=== PATIENT | female | born 1990 | race Two or more races ===

== ENCOUNTER 2025-01-26 01:18 | Emergency (ER) | payer SELFPAY ==
[2025-01-26 01:25] VITALS: BP 111/65; PULSE 82; RESP 18; TEMP 97.9; BMI 31.3
[2025-01-26] MEDS ORDERED: ACETAMINOPHEN INJECTION 100 ML ONE (02:05)
[2025-01-26] MEDS ORDERED: FAMOTIDINE 20 MG/50 ML IVPB 20 MG/50 ML MG IVPB ONE (02:05)
[2025-01-26] MEDS: ACETAMINOPHEN 1000 MG/100 ML BAG IVPB ONE (02:33)
[2025-01-26] MEDS: FAMOTIDINE 20 MG/50 ML IVPB 20 MG/50 ML MG IVPB ONE (02:33)
[2025-01-26 03:00] LABS: ABSOLUTE IMMATURE GRANULOCYTES 0.02 x10^3/uL (0.0-0.031); BASOPHILS # 0.02 x10^3/uL (0.01-0.08); EOSINOPHIL % 1.1 % (0.7-5.8); EOSINOPHILS # 0.09 x10^3/uL (0.04-0.36); MCHC 31.5 g/dl (32.2-35.5); MEAN CELL VOLUME 88.0 fl (79.4-94.8); MEAN PLT VOLUME 10.5 fl (9.4-12.3); MONOCYTE # 0.59 x10^3/uL (0.24-0.86); MONOCYTE % 7.3 % (4.7-12.5); RDW 13.7 % (12.1-16.8)
[2025-01-26 03:10] LABS: INR 1.04 (0.83-1.09); PROTHROMBIN TIME (PATIENT) 11.4 SEC (9.7-13.0)
[2025-01-26 03:14] LABS: ACTIVATED PTT 25.7 SECONDS (25.2-36.5)
[2025-01-26 03:20] LABS: GLUCOSE,RANDOM 94.0 mg/dL (74-106); TOT PROT 7.3 g/dl (6.4-8.2)
[2025-01-26 03:21] LABS: CO2 25.0 mmol/L (21-32)
[2025-01-26 03:23] LABS: ALK PHOS 73.0 U/L (40-150)
[2025-01-26 03:26] LABS: CREATININE 0.54 mg/dL (0.55-1.3); SGOT/AST 23.0 U/L (5-34); SGPT/ALT 25.0 U/L (0-55)
== END 2025-01-26 03:46 | disposition home or self-care (01) ==
LOC: JER 01:18
PROC: 3E033GC Introduction of Other Therapeutic Substance into Peripheral Vein, Percutaneous Approach (ICD-10-PCS; principal; 2025-01-26)
PROC: 3E033NZ Introduction of Analgesics, Hypnotics, Sedatives into Peripheral Vein, Percutaneous Approach (ICD-10-PCS; 2025-01-26)
DX: K80.20 Calculus of gallbladder without cholecystitis without obstruction (principal); R10.13 Epigastric pain; R11.2 Nausea with vomiting, unspecified
CPT/HCPCS: 36415; 76705-TC; 80053; 83690; 85025; 85610; 85730; 86850; 86900; 86901; 99285-25